=== PATIENT | male | born 1980 | race Caucasian/White ===

== ENCOUNTER → 2021-02-03 | Outpatient (CLI) | payer OTHER ==
[~2021-02-03] MED LIST: 8 HOUR650 MG PO; CIPRO500 MG PO; FEROSUL325 MG PO; FLAGYL500 MG PO; IBUPROFEN200 MG PO; IMODIUM CAP 2 MG2 MG PO; NORCO 7.5-3251 EACH PO; PREDNISONE20 MG PO; ULTRAM50 MG PO
== END ==
LOC: KOH-I 11:26
DX: M25.551 Pain in right hip (principal); M79.641 Pain in right hand; M25.521 Pain in right elbow
CPT/HCPCS: 73080; 73130; 73502